=== PATIENT | male | born 1955 | race Caucasian/White ===

== ENCOUNTER 2018-04-26 18:17 | Outpatient (REF) | payer OTHER, SELFPAY ==
[2018-04-26 22:34] LABS: BUN 27 mg/dL (7-18); CREATININE 1.58 mg/dL (0.70-1.30); Calcium 9.2 mg/dL (8.5-10.1); Chloride 102 mmol/L (98-107); Estimated GFR 44.81 (mL/min/1.73m2); Glucose 221 mg/dL (70-100); Potassium 4.6 mmol/L (3.5-5.1); Sodium 137 mmol/L (136-145)
== END 2018-04-26 18:37 ==
LOC: NCHCN 18:17
PROVIDERS: PCP Family Medicine; Visit Provider Family Medicine
DX: N18.3 Chronic kidney disease, stage 3 (moderate) (principal); I25.10 Atherosclerotic heart disease of native coronary artery without angina pectoris
CPT/HCPCS: 80048

== ENCOUNTER 2018-08-01 10:00 | Outpatient (REF) | payer OTHER, SELFPAY ==
[2018-08-01 21:57] LABS: Anion Gap 14.5 mmol/L (3-11); BUN 35 mg/dL (7-18); CO2 21.5 mmol/L (21.0-32.0); CREATININE 1.67 mg/dL (0.70-1.30); Calcium 9.4 mg/dL (8.5-10.1); Chloride 104 mmol/L (98-107); Glucose 229 mg/dL (70-100); Potassium 4.8 mmol/L (3.5-5.1); Sodium 140 mmol/L (136-145)
== END 2018-08-01 10:20 ==
LOC: NCHCN 10:00
PROVIDERS: PCP Family Medicine; Visit Provider Family Medicine
DX: E11.65 Type 2 diabetes mellitus with hyperglycemia (principal); N18.3 Chronic kidney disease, stage 3 (moderate); I25.10 Atherosclerotic heart disease of native coronary artery without angina pectoris
CPT/HCPCS: 80048

== ENCOUNTER 2018-09-01 12:57 | Outpatient (REF) | payer OTHER, SELFPAY ==
[2018-09-01 22:53] LABS: COMMENT (LAB VIEW ONLY) 101.77 mg/dL; Microalb ug/mg Crea 190.6 ug/mg Cr
== END 2018-09-01 13:17 ==
LOC: NCHCN 12:57
PROVIDERS: PCP Family Medicine; Visit Provider Family Medicine
DX: I25.10 Atherosclerotic heart disease of native coronary artery without angina pectoris (principal); E11.65 Type 2 diabetes mellitus with hyperglycemia; F32.9 Major depressive disorder, single episode, unspecified
CPT/HCPCS: 82043; 82570

== ENCOUNTER 2020-02-14 16:43 | Outpatient (REF) | payer SELFPAY | END 2020-02-14 17:03 | LOC: NCHCN 16:43 | PROVIDERS: PCP Family Medicine; Visit Provider Registered Nurse | DX: E11.65 Type 2 diabetes mellitus with hyperglycemia (principal) | CPT/HCPCS: 82043; 82570 ==

== ENCOUNTER 2020-08-13 17:47 | Outpatient (REF) | payer OTHER, SELFPAY ==
[2020-08-13 13:34] LABS: Anion Gap 12.3 mmol/L (3-11); BUN 25 mg/dL (7-18); CO2 23.7 mmol/L (21.0-32.0); CREATININE 1.6 mg/dL (0.70-1.30); Calcium 8.7 mg/dL (8.5-10.1); Chloride 108 mmol/L (98-107); Estimated GFR 43.74 (mL/min/1.73m2); Glucose 102 mg/dL (74-106); Potassium 4.7 mmol/L (3.5-5.1); Sodium 144 mmol/L (136-145)
== END 2020-08-13 17:48 | disposition home or self-care (01) ==
LOC: NCHCN 17:47
PROVIDERS: PCP Family Medicine; Visit Provider Registered Nurse
DX: E11.22 Type 2 diabetes mellitus with diabetic chronic kidney disease (principal); N18.9 Chronic kidney disease, unspecified
CPT/HCPCS: 80048

== ENCOUNTER 2020-08-27 09:31 | Outpatient (REF) | payer OTHER, SELFPAY ==
[2020-08-27 14:27] LABS: Anion Gap 9.5 mmol/L (3-11); BUN 21 mg/dL (7-18); CO2 25.5 mmol/L (21.0-32.0); CREATININE 1.6 mg/dL (0.70-1.30); Calcium 9.5 mg/dL (8.5-10.1); Chloride 107 mmol/L (98-107); Estimated GFR 43.74 (mL/min/1.73m2); Glucose 110 mg/dL (74-106); Potassium 4.5 mmol/L (3.5-5.1); Sodium 142 mmol/L (136-145)
== END 2020-08-27 09:32 | disposition home or self-care (01) ==
LOC: NCHCN 09:31
PROVIDERS: PCP Family Medicine; Visit Provider Registered Nurse
DX: E11.22 Type 2 diabetes mellitus with diabetic chronic kidney disease (principal); N18.32 Chronic kidney disease, stage 3b
CPT/HCPCS: 80048

== ENCOUNTER 2021-02-10 13:17 | Outpatient (REF) | payer OTHER, SELFPAY ==
[2021-02-10 15:03] LABS: ALT 33 U/L (16-63); AST 15 U/L (15-37); Albumin 3.7 g/dL (3.4-5.0); Alkaline Phosphatase 61 U/L (46-116); Anion Gap 10.1 mmol/L (3-11); BUN 32 mg/dL (7-18); Bilirubin, Total 0.6 mg/dL (0.2-1.0); CO2 27.9 mmol/L (21.0-32.0); CREATININE 1.6 mg/dL (0.70-1.30); Calcium 9.4 mg/dL (8.5-10.1); Chloride 104 mmol/L (98-107); Cholesterol 246 mg/dL (<200); Estimated GFR 43.74 (mL/min/1.73m2); Glucose 174 mg/dL (74-106); HDL Cholesterol 53 mg/dL (40-60); Potassium 4.7 mmol/L (3.5-5.1); Sodium 142 mmol/L (136-145); Total Protein 7.6 g/dL (6.4-8.2); Triglyceride 468 mg/dL (<150)
[2021-02-10 15:29] LABS: LDL CHOLESTEROL 57 mg/dL (<100)
[2021-02-10 15:36] LABS: Hemoglobin A1C 7.8 % (<5.7)
== END 2021-02-10 13:18 | disposition home or self-care (01) ==
LOC: NCHCN 13:17
PROVIDERS: Nurse Practitioner Family; PCP Family Medicine; Visit Provider Family Medicine
DX: E11.65 Type 2 diabetes mellitus with hyperglycemia (principal); I10 Essential (primary) hypertension; Z79.4 Long term (current) use of insulin; I25.10 Atherosclerotic heart disease of native coronary artery without angina pectoris
CPT/HCPCS: 80053; 80061; 83721; 83036

== ENCOUNTER 2021-04-24 16:25 | Outpatient (REF) | payer OTHER, SELFPAY ==
[2021-04-24 14:30] LABS: Calculated LDL 61 mg/dL (<100); Cholesterol 188 mg/dL (<200); HDL Cholesterol 52 mg/dL (40-60); Triglyceride 376 mg/dL (<150)
== END 2021-04-24 16:26 | disposition home or self-care (01) ==
LOC: NCHCN 16:25
PROVIDERS: PCP Family Medicine; Visit Provider Family Medicine
DX: E78.5 Hyperlipidemia, unspecified (principal); E11.8 Type 2 diabetes mellitus with unspecified complications; I35.0 Nonrheumatic aortic (valve) stenosis; I25.10 Atherosclerotic heart disease of native coronary artery without angina pectoris
CPT/HCPCS: 80061

== ENCOUNTER 2021-08-14 12:24 | Outpatient (REF) | payer OTHER, SELFPAY ==
[2021-08-14 16:30] LABS: COMMENT (LAB VIEW ONLY) 77.36 mg/dL
[2021-08-14 16:32] LABS: Microalb ug/mg Crea 386.4 ug/mg Cr
== END 2021-08-14 12:25 | disposition home or self-care (01) ==
LOC: NCHCN 12:24
PROVIDERS: PCP Family Medicine; Visit Provider Family Medicine
DX: E11.8 Type 2 diabetes mellitus with unspecified complications (principal)
CPT/HCPCS: 82043; 82570

== ENCOUNTER 2022-04-28 21:04 | Outpatient (REF) | payer MEDICARE, SELFPAY ==
[2022-04-28 20:56] LABS: Anion Gap 10.3 mmol/L (3-11); BUN 36 mg/dL (7-18); CO2 23.7 mmol/L (21.0-32.0); Calcium 8.9 mg/dL (8.5-10.1); Chloride 104 mmol/L (98-107); Cholesterol 191 mg/dL (<200); Estimated GFR 36.36 (mL/min/1.73m2); Glucose 224 mg/dL (74-106); HDL Cholesterol 55 mg/dL (40-60); Potassium 4.8 mmol/L (3.5-5.1); Sodium 138 mmol/L (136-145); Triglyceride 487 mg/dL (<150)
--- OUTSIDE RECORDS SUMMARY | 2022-04-28 21:12 | XMS_ITS | CCD ---
Author Name Unknown Address [address] [place] [address] [id number] Organization Unknown Address [address] [place] [address] [phone] Care Team Providers Care Nursing Program Coordinator Name Role Phone CECILE ROBBINS Attending Physician [phone] ALEXSANDER MEDRANO Er Physician 2 [phone] ALEXSANDER MEDRANO (Secondary) Physicia n [phone] LIBRADO Finnegan Registered Nurse [phone] Vital Signs Vital Sign Value Unit Date/Time Recent/Initial ? BMI (Body Mass Index) 32.98 kg/m^2 12/16/2021 21: 03 Initial VS Weight Measured 250 lbs 12/16/2021 21:03 Ini tial VS Height 73 in 12/16/2021 21:03 Initial VS BSA (Body Surface Area) 2.42 m^2 12/16/2021 2 1:03 Initial VS BP Systolic 187 mmHg 12/16/2021 21:03 Initial VS BP Diastolic 110 mmHg 12/16/2021 21:03 Initia l VS Respiratory Rate 20 bpm 12/16/2021 21:03 In itial VS Heart Rate 91 bpm 12/16/2021 21:03 Initial VS O2 % BldC Oximetry 96 % 12/16/2021 21:03 Initial VS Body Temperature 36.7 degrees 12/16/2021 21:03 In itial VS BMI (Body Mass Index) 33.69 kg/m^2 12/16/2021 23: 48 Most Recent VS Weight Measured 248.4 lbs 12/16/2021 23:48 Mos t Recent VS Height 72 in 12/16/2021 23:48 Most Rec ent VS BSA (Body Surface Area) 2.39 m^2 12/16/2021 2 3:48 Most Recent VS BP Systolic 108 mmHg 12/18/2021 07:23 Most Re cent VS BP Diastolic 72 mmHg 12/18/2021 07:23 Most R ecent VS Respiratory Rate 20 bpm 12/18/2021 07:[address] Recent VS Heart Rate 66 bpm 12/18/2021 07:23 Most Rec ent VS O2 % BldC Oximetry 97 % 12/18/2021 07:23 Most Recent VS Body Temperature 36.4 degrees 12/18/2021 07:[address] Recent VS Allergies Allergy Code Allergy Type Reaction Status No Known Environmental Allergies 0 No known envir onmental allergies Active No Known Food Allergies 0 No known food allergies Active No Known Drug Allergies 0 No known drug allergies Active Procedures Unknown or Not Available. History of Immunizations Unknown or Not Available. Problems Problem Code Start Date Resolved Date Status NSTEMI 691029152 Active Coronary artery disease 20595539 A ctive Type 2 diabetes 51004906 Active Chronic kidney disease 509694951 Ac tive Aortic valve stenosis (disorder) 03808345 Active Hypertension 87442598 Active Hyperlipidemia 01388552 Active Aortic valve stenosis (disorder) 43676755 03/2021 Resolved Single functional kidney 191716059 12/16/2021 Resolved Chronic kidney disease 224254666 12/16/2021 Re solved Hyperlipidemia 81367318 12/16/2021 Resolved Hypertension 55685296 12/16/2021 Resolved Type 2 diabetes 38386699 12/16/2021 Resolved Coronary artery disease 35406287 12/16/2021 R esolved Results BASIC METABOLIC PANEL (BMP) - Collect Date/Time: 12/18/2021 06:35 Test Name Code Test Result Test Units Test Ref Rang e GLUCOSE 2345-7 91 mg/dL L=70 H=116 BUN 3094-0 33 mg/dL L=6 H=25 CREATININE 2160-0 1.56 mg/dL L=0.67 H=1.17 SODIUM SERUM 2951-2 137 mmol/L L=136 H=145 POTASSIUM SERUM 2823-3 4.0 mmol/L L=3.4 H=5 .2 CHLORIDE SERUM 2075-0 103 mmol/L L=96 H=110 CARBON DIOXIDE (CO2) 2028-9 26 mmol/L L=22 H=34 ANION GAP 48354-4 8.1 mmol/L CALCIUM SERUM 25714-9 8.6 mg/dL L=8.2 H=10. 2 AGE 66 years eGFR (non-Afr.Amer.) 99252-0 45 mL/min eGFR (Afr-Pakistani) 86880-6 54 mL/min BASIC METABOLIC PANEL (BMP) - Collect Date/Time: 12/17/2021 04:50 Test Name Code Test Result Test Units Test Ref Rang e GLUCOSE 2345-7 139 mg/dL L=70 H=116 BUN 3094-0 36 mg/dL L=6 H=25 CREATININE 2160-0 1.72 mg/dL L=0.67 H=1.17 SODIUM SERUM 2951-2 139 mmol/L L=136 H=145 POTASSIUM SERUM 2823-3 3.9 mmol/L L=3.4 H=5 .2 CHLORIDE SERUM 2075-0 104 mmol/L L=96 H=110 CARBON DIOXIDE (CO2) 2028-9 25 mmol/L L=22 H=34 ANION GAP 42630-9 10.3 mmol/L CALCIUM SERUM 65152-0 8.9 mg/dL L=8.2 H=10. 2 AGE 66 years eGFR (non-Afr.Amer.) 31850-8 40 mL/min eGFR (Afr-Pakistani) 95931-4 49 mL/min BNP (PRO-B NATRIURETIC PEPTI DE) - Collect Date/Time: 12/16/2021 20:50 Test Name Code Test Result Test Units Test Ref Rang e NT-proBNP 77187-4 751.0 pg/mL L=0.0 H=125 COMPREHENSIVE METABOLIC PANE L (CMP) - Collect Date/Time: 12/16/2021 20:50 Test Name Code Test Result Test Units Test Ref Rang e GLUCOSE 2345-7 266 mg/dL L=70 H=116 BUN 3094-0 40 mg/dL L=6 H=25 CREATININE 2160-0 2.09 mg/dL L=0.67 H=1.17 SODIUM SERUM 2951-2 135 mmol/L L=136 H=145 POTASSIUM SERUM 2823-3 4.8 mmol/L L=3.4 H=5 .2 CHLORIDE SERUM 2075-0 100 mmol/L L=96 H=110 CARBON DIOXIDE (CO2) 2028-9 23 mmol/L L=22 H=34 ANION GAP 45047-4 11.6 mmol/L CALCIUM SERUM 96033-0 8.7 mg/dL L=8.2 H=10. 2 BILIRUBIN TOTAL 1975-2 0.5 mg/dL L=0.0 H=1 .3 ALK. PHOS. 6768-6 50 U/L L=46 H=116 SGOT (AST) 1920-8 19 U/L L=15 H=37 SGPT (ALT) 1742-6 27 U/L L=12 H=78 TOTAL PROTEIN 2885-2 7.6 gm/dL L=6.0 H=8.0 ALBUMIN 1751-7 3.7 gm/dL L=3.4 H=5.0 AGE 66 years eGFR (non-Afr.Amer.) 60952-2 32 mL/min eGFR (Afr-Pakistani) 69874-8 39 mL/min GLUCOSE FINGER/HEEL CAPILLAR Y - Collect Date/Time: 12/18/2021 12:43 Test Name Code Test Result Test Units Test Ref Rang e GLUCOSE CAP 119 mg/dL L=70 H=116 GLUCOSE FINGER/HEEL CAPILLAR Y - Collect Date/Time: 12/18/2021 07:59 Test Name Code Test Result Test Units Test Ref Rang e GLUCOSE CAP 102 mg/dL L=70 H=116 GLUCOSE FINGER/HEEL CAPILLAR Y - Collect Date/Time: 12/17/2021 20:23 Test Name Code Test Result Test Units Test Ref Rang e GLUCOSE CAP 137 mg/dL L=70 H=116 GLUCOSE FINGER/HEEL CAPILLAR Y - Collect Date/Time: 12/17/2021 17:07 Test Name Code Test Result Test Units Test Ref Rang e GLUCOSE CAP 90 mg/dL L=70 H=116 GLUCOSE FINGER/HEEL CAPILLAR Y - Collect Date/Time: 12/17/2021 11:58 Test Name Code Test Result Test Units Test Ref Rang e GLUCOSE CAP 108 mg/dL L=70 H=116 GLUCOSE FINGER/HEEL CAPILLAR Y - Collect Date/Time: 12/17/2021 07:59 Test Name Code Test Result Test Units Test Ref Rang e GLUCOSE CAP 111 mg/dL L=70 H=116 MAGNESIUM SERUM* - Collect D ate/Time: 12/16/2021 20:50 Test Name Code Test Result Test Units Test Ref Rang e MAGNESIUM 33131-7 2.2 mg/dL L=1.8 H=2.4 TROPONIN HIGH SENSITIVITY* - Collect Date/Time: 12/18/2021 06:35 Test Name Code Test Result Test Units Test Ref Rang e TROPONIN HS 665.5 pg/mL L=0.0 H=60.4 Specimen seq. RANDOM N/A TROPONIN HIGH SENSITIVITY* - Collect Date/Time: 12/17/2021 11:55 Test Name Code Test Result Test Units Test Ref Rang e TROPONIN HS 1201.0 pg/mL L=0.0 H=60.4 Specimen seq. RANDOM N/A TROPONIN HIGH SENSITIVITY* - Collect Date/Time: 12/17/2021 04:50 Test Name Code Test Result Test Units Test Ref Rang e TROPONIN HS 1427.0 pg/mL L=0.0 H=60.4 Specimen seq. RANDOM N/A TROPONIN HIGH SENSITIVITY* - Collect Date/Time: 12/17/2021 00:27 Test Name Code Test Result Test Units Test Ref Rang e TROPONIN HS 1283.9 pg/mL L=0.0 H=60.4 Specimen seq. RANDOM N/A TROPONIN HIGH SENSITIVITY* - Collect Date/Time: 12/16/2021 20:50 Test Name Code Test Result Test Units Test Ref Rang e TROPONIN HS 1062.2 pg/mL L=0.0 H=60.4 Specimen seq. ADM. N/A CBC W/ DIFFERENTIAL* - Colle ct Date/Time: 12/18/2021 06:35 Test Name Code Test Result Test Units Test Ref Rang e WBC 6690-2 8.78 th/cmm L=5.00 H=10.00 NEUT % 56.5 % L=40.0 H=80.0 LYMPH % 31.0 % L=10.0 H=50.0 MONO % 22568-2 10.4 % L=2.0 H=12.0 EOS % 1.7 % L=0.0 H=8.0 BASO % 0.3 % L=0.0 H=3.0 IG % 2514-8 0.1 % L=0.0 H=1.1 NRBC % 53657-9 0.0 % L=0.0 H=0.0 NEUT abs count 751-8 5.0 th/cmm L=1.6 H=8. 4 LYMPH abs count 731-0 2.7 th/cmm L=1.5 H=4 .0 MONO abs count 742-7 0.9 th/cmm L=0.2 H=1. 0 EOS abs count 711-2 0.2 th/cmm L=0.0 H=0.5 BASO abs count 704-7 0.0 th/cmm L=0.0 H=0. 2 IG abs count 92749-7 0.0 th/cmm L=0.0 H=0.1 NRBC abs count 48199-4 0.0 mil/cmm L=0.0 H=0. 0 RBC 789-8 4.98 mil/cmm L=4.30 H=6.20 HEMOGLOBIN 718-7 13.7 gm/dL L=13.0 H=17.0 HEMATOCRIT 4544-3 43 % L=45 H=52 MCV 787-2 86 fL L=82 H=92 MCH 785-6 27.5 pg L=27.0 H=31.0 MCHC 786-4 32.0 % L=32.0 H=36.0 RDW-SD 788-0 42.0 fL L=39.0 H=49.0 PLATELET COUNT 777-3 205 th/cmm L=150 H=45 0 CBC W/ DIFFERENTIAL* - Colle ct Date/Time: 12/17/2021 04:50 Test Name Code Test Result Test Units Test Ref Rang e WBC 6690-2 9.60 th/cmm L=5.00 H=10.00 NEUT % 53.5 % L=40.0 H=80.0 LYMPH % 32.6 % L=10.0 H=50.0 MONO % 95258-2 11.7 % L=2.0 H=12.0 EOS % 1.4 % L=0.0 H=8.0 BASO % 0.4 % L=0.0 H=3.0 IG % 2514-8 0.4 % L=0.0 H=1.1 NRBC % 64559-6 0.0 % L=0.0 H=0.0 NEUT abs count 751-8 5.1 th/cmm L=1.6 H=8. 4 LYMPH abs count 731-0 3.1 th/cmm L=1.5 H=4 .0 MONO abs count 742-7 1.1 th/cmm L=0.2 H=1. 0 EOS abs count 711-2 0.1 th/cmm L=0.0 H=0.5 BASO abs count 704-7 0.0 th/cmm L=0.0 H=0. 2 IG abs count 67895-3 0.0 th/cmm L=0.0 H=0.1 NRBC abs count 23691-9 0.0 mil/cmm L=0.0 H=0. 0 RBC 789-8 4.91 mil/cmm L=4.30 H=6.20 HEMOGLOBIN 718-7 13.8 gm/dL L=13.0 H=17.0 HEMATOCRIT 4544-3 42 % L=45 H=52 MCV 787-2 86 fL L=82 H=92 MCH 785-6 28.1 pg L=27.0 H=31.0 MCHC 786-4 32.8 % L=32.0 H=36.0 RDW-SD 788-0 41.3 fL L=39.0 H=49.0 PLATELET COUNT 777-3 183 th/cmm L=150 H=45 0 CBC W/ DIFFERENTIAL* - [facility] ct Date/Time: 12/16/2021 20:50 Test Name Code Test Result Test Units Test Ref Rang e WBC 6690-2 13.81 th/cmm L=5.00 H=10.00 NEUT % 75.9 % L=40.0 H=80.0 LYMPH % 15.2 % L=10.0 H=50.0 MONO % 85826-8 7.9 % L=2.0 H=12.0 EOS % 0.4 % L=0.0 H=8.0 BASO % 0.3 % L=0.0 H=3.0 IG % 2514-8 0.3 % L=0.0 H=1.1 NRBC % 15636-1 0.0 % L=0.0 H=0.0 NEUT abs count 751-8 10.5 th/cmm L=1.6 H=8. 4 LYMPH abs count 731-0 2.1 th/cmm L=1.5 H=4 .0 MONO abs count 742-7 1.1 th/cmm L=0.2 H=1. 0 EOS abs count 711-2 0.1 th/cmm L=0.0 H=0.5 BASO abs count 704-7 0.0 th/cmm L=0.0 H=0. 2 IG abs count 00545-4 0.0 th/cmm L=0.0 H=0.1 NRBC abs count 77516-5 0.0 mil/cmm L=0.0 H=0. 0 RBC 789-8 5.11 mil/cmm L=4.30 H=6.20 HEMOGLOBIN 718-7 14.4 gm/dL L=13.0 H=17.0 HEMATOCRIT 4544-3 44 % L=45 H=52 MCV 787-2 86 fL L=82 H=92 MCH 785-6 28.2 pg L=27.0 H=31.0 MCHC 786-4 32.7 % L=32.0 H=36.0 RDW-SD 788-0 41.4 fL L=39.0 H=49.0 PLATELET COUNT 777-3 215 th/cmm L=150 H=45 0 PT PROTHROMBIN TIME* - Colle ct Date/Time: 12/16/2021 20:50 Test Name Code Test Result Test Units Test Ref Rang e PROTIME 5902-2 10.8 seconds L=9.3 H=11.4 INR 89702-2 1.09 L=2.00 H=3.00 PTT PARTIAL THROMBOPLASTIN T JASKARAN* - Collect Date/Time: 12/17/2021 17:35 Test Name Code Test Result Test Units Test Ref Rang e PTT 09685-1 42.5 seconds L=24.5 H=32.8 PTT PARTIAL THROMBOPLASTIN T JASKARAN* - Collect Date/Time: 12/17/2021 11:55 Test Name Code Test Result Test Units Test Ref Rang e PTT 15925-2 43.2 seconds L=24.5 H=32.8 PTT PARTIAL THROMBOPLASTIN T JASKARAN* - Collect Date/Time: 12/17/2021 04:50 Test Name Code Test Result Test Units Test Ref Rang e PTT 92051-7 36.0 seconds L=24.5 H=32.8 PTT PARTIAL THROMBOPLASTIN T JASKARAN* - Collect Date/Time: 12/16/2021 20:50 Test Name Code Test Result Test Units Test Ref Rang ronald PTT 01286-4 23.7 seconds L=24.5 H=32.8 NESTOR DUONG* - Sara ect Date/Time: 12/16/2021 23:04 Test Name Code Test Result Test Units Test Ref Rang ronald [facility]- 58655-0 INPATIENT/ED N/A SARS COV2 RNA: 75559-0 NEGATIVE N/A REFERENCE RANGE: NEGAT Active Medications Medication Code Dose Units Frequency Route Modificatio n Start Date/Time INSULIN PEN GLARGINE: 300UNITS/3ML 090702 60 Unit(s) DAILY SUBQ 17:32 NITROGLYCERIN OINTMENT FOILPACK 2%:1GRAM 549576 1 INCH Q6H TOP 12/17/2021 16:00 METOPROLOL TARTRATE TABLET: 25MG 336601 25 MG BID PO 12/17/2021 09:32 ASPIRIN TABLET E.C.: 81MG 776750 81 MG DAILY WITH FOOD PO 12/17/2021 00:22 TICAGRELOR TABLET: 90MG 9267603 90 MG BID PO 12/17/2021 00:22 ATORVASTATIN TABLET: 20MG 552763 20 MG BEDTIME PO 23:29 EMPAGLIFLOZIN TABLET: 25MG 4965414 25 MG BEDTIME PO 23:29 FLUoxetine CAPSULE: 20MG 198615 40 MG BEDTIME PO 2021 23:29 GABAPENTIN CAPSULE: 300MG 334139 300 MG BEDTIME PO 12/16 23:29 INSULIN PEN LISPRO: 300UNITS/3ML 0715254 Unit(s) PRN SUBQ 23:29 LISINOPRIL TABLET: 5MG 036357 2.5 MG BEDTIME PO 12/16/2021 23:29 HEPARIN PREMIX IV BA,000UNITS/250ML 1371199 X1 IV 22:35 ~~ HEPARIN PREMIX IV BA,000UNITS/250ML 8446208 21952 UNITS HEPARIN PREMIX IV BA,000UNITS/250ML 5955958 CONT IV 22:35 ~~ HEPARIN PREMIX IV BA,000UNITS/250ML 0082066 99831 UNITS ACETAMINOPHEN INJ IVPB: 1000MG/100ML 412931 PRN Q6H IVPB 1 02/15/2021 22:33 ~~ ACETAMINOPHEN INJ IVPB: 1000MG/100ML 535799 9948 MG ACETAMINOPHEN TABLET: 325MG 290134 975 MG PRN Q6H PO 2021 22:33 CALCIUM CARBONATE TAB CHEWABLE UD: 500MG 259061 8696 MG PRN Q2H CHEW 12/16/2021 22:33 ONDANSETRON INJ SDV: 4MG/2ML 9669359 4 MG PRN Q4H IVP 022 22:33 SODIUM CHLORIDE 0.9% FLUSH 10ML SYRINGE 9059987 2 ML Q8H IVP 12/16/2021 22:33 HEPARIN INJ SDV: 5,000 UNITS/ML 2300965 4604 UNITS PRN Q6H IVP 12/16 22:00 NITROGLYCERIN TABLET SL (25CT): 0.4MG 515281 0.4 MG PRN Q5MIN SL 12/16/2021 21:01 Medications Administered During Visit Medication Dose Units Frequency Route Date/Time of Last Dose ASPIRIN TABLET CHEWABLE: 81MG 324 MG X1 CHEW 12/16/2021 21:0 2 NITROGLYCERIN TABLET SL (25CT): 0.4MG 0.4 MG PRN Q5MIN SL 12/16/2021 21: 40 HEPARIN INJ SDV: 5,000 UNITS/ML 5000 UNITS X1 IVP 12/16/2021 22:2 0 HEPARIN PREMIX IV BA,000UNITS/250ML 1000 UNITS X1 IV 12/16/2021 22:25 TICAGRELOR TABLET: 90MG 180 MG X1 PO 12/16/2021 22:45 SODIUM CHLORIDE 0.9% FLUSH 10ML SYRINGE 2 ML Q8H IVP 12/17/2021 05:3 9 ACETAMINOPHEN TABLET: 325MG 975 MG PRN Q6H PO 12/17/2021 22:48 ONDANSETRON INJ SDV: 4MG/2ML 4 MG PRN Q4H IVP 12/17/2021 03:0 0 NITROGLYCERIN OINTMENT FOILPACK 2%:1GRAM 1 INCH Q6H TOP 12/17/2021 09:42 EMPAGLIFLOZIN TABLET: 25MG 25 MG BEDTIME PO 12/17/2021 20:32 ATORVASTATIN TABLET: 20MG 20 MG BEDTIME PO 12/17/2021 20:32 FLUoxetine CAPSULE: 20MG 40 MG BEDTIME PO 12/17/2021 20:32 LISINOPRIL TABLET: 5MG 2.5 MG BEDTIME PO 12/17/2021 17:28 GABAPENTIN CAPSULE: 300MG 300 MG BEDTIME PO 12/17/2021 20:32 INSULIN PEN LISPRO: 300UNITS/3ML PRN SUBQ 12/18/2021 12:5 7 ASPIRIN TABLET E.C.: 81MG 81 MG DAILY WITH SHAAN D PO 12/18/2021 08:21 HEPARIN PREMIX IV BA,000UNITS/250ML 1400 UNITS CONT IV 12/18/2021 12:48 TICAGRELOR TABLET: 90MG 90 MG BID PO 12/18/2021 08:21 METOPROLOL TARTRATE TABLET: 25MG 25 MG BID PO 12/18/2021 08:2 1 NITROGLYCERIN OINTMENT FOILPACK 2%:1GRAM 1 INCH Q6H TOP 12/18/2021 11:10 INSULIN MDV GLARGINE: 1000 UNITS/10ML 60 Unit(s) DAILY SUBQ 12/17/2021 12:2 0 INSULIN PEN GLARGINE: 300UNITS/3ML 60 Unit(s) DAILY SUBQ 12/18/2021 08:2 2 Encounters Encounter Diagnosis Diagnosis Code Start Date Non-ST elevation (NSTEMI) myocardial infarction I214 12/16/2021 Social History Smoking Status Code Start Date End Date Never smoker [id number] Patient Decision Aids Unknown or Not Available. Discharge Instructions You were admitted to [facility] on 12/16/2021 22:33 with a principal diagnosis of Acute Myocardial Infarction You had the following tests done:GLUCOSE FINGER/HEEL CAPILLARYGLUCOSE FINGER/HEEL CAPILLARYBASIC METABOLIC PANEL (BMP)CBC W/ DIFFERENTIAL*TROPONIN HIGH SENSITIVITY*GLUCOSE FINGER/HEEL CAPILLARYPTT PARTIAL THROMBOPLASTIN TIME*GLUCOSE FINGER/HEEL CAPILLARYGLUCOSE FINGER/HEEL CAPILLARYPTT PARTIAL THROMBOPLASTIN TIME*TROPONIN HIGH SENSITIVITY*GLUCOSE FINGER/HEEL CAPILLARYBASIC METABOLIC PANEL (BMP)CBC W/ DIFFERENTIAL*PTT PARTIAL THROMBOPLASTIN TIME*TROPONIN HIGH SENSITIVITY*[facility] MESERETID RHEONIX*BNP (PRO-B NATRIURETIC PEPTIDE)CBC W/ DIFFERENTIAL*COMPREHENSIVE METABOLIC PANEL (CMP)MAGNESIUM SERUM*PT PROTHROMBIN TIME*PTT PARTIAL THROMBOPLASTIN TIME*TROPONIN HIGH SENSITIVITY* You were discharged from [facility] on 12/18/2021 13:40 Should you have any questions prior to discharge, please contact a member of your healthcare team. If you have left the hospital and have any questions, please contact your primary care physician. Chief Complaint and Reason For Visit Chief Complaint Date of Onset NSTEMI 12/17/2021 Function Status Unknown or Not Available. Plan of Care Unknown or Not Available. Referral/Transition of Care Reason for Transfer: TRANSFER FROM [facility] Referring Provider: [facility] Address: [address] [place] [id number]
--- OUTSIDE RECORDS SUMMARY | 2022-04-28 21:12 | XMS_ITS | CCD ---
Author Name Unknown Address [address] [place] [address] [phone] Organization Unknown Address [address] [place], [place] [id number] Care Team Providers Care Sample Prep Technician Name Role Phone SEA TREVIÑO Attending Physician [phone] SEA TREVIÑO Rounding (Secondary) Physician [phone] Vital Signs Unknown or Not Available. Allergies Allergy Code Allergy Type Reaction Status No Known Environmental Allergies 0 No known envir onmental allergies Active No Known Food Allergies 0 No known food allergies Active No Known Drug Allergies 0 No known drug allergies Active Procedures Unknown or Not Available. History of Immunizations Unknown or Not Available. Problems Problem Code Start Date Resolved Date Status NSTEMI 243470134 Active Coronary artery disease 08548418 A ctive Type 2 diabetes 77998791 Active Chronic kidney disease 211964482 Ac tive Aortic valve stenosis (disorder) 63224713 Active Hypertension 34592671 Active Hyperlipidemia 99712618 Active Results Unknown or Not Available. Active Medications Unknown or Not Available. Medications Administered During Visit Unknown or Not Available. Encounters Encounter Diagnosis Diagnosis Code Start Date Essential hypertension 52808418 3 Social History Smoking Status Code Start Date End Date Never smoker 725538748 Patient Decision Aids Unknown or Not Available. Discharge Instructions You were admitted to [facility] on 03/01/2022 15:31 with a principal diagnosis of Essential (primary) hypertension You were discharged from [facility] on 03/01/2022 00:00 Should you have any questions prior to discharge, please contact a member of your healthcare team. If you have left the hospital and have any questions, please contact your primary care physician. Chief Complaint and Reason For Visit Unknown or Not Available. Function Status Unknown or Not Available. Plan of Care Unknown or Not Available. Referral/Transition of Care Unknown or Not Available.
--- OUTSIDE RECORDS SUMMARY | 2022-04-28 21:12 | XMS_ITS | CCD ---
Author Name Unknown Address [address] [place] [address] [phone] Organization Unknown Address [address] [place] [address] [phone] Care Team Providers Care Commercial Airline Pilot Name Role Phone VARSHA KHRIS Attending Physician [phone] Vital Signs Unknown or Not Available. Allergies [...] Code Start Date Resolved Date Status NSTEMI 131362585 Active Coronary artery disease 27048045 A ctive Type 2 diabetes 18465794 Active Chronic kidney disease 997538998 Ac tive Aortic valve stenosis (disorder) 02563080 Active Hypertension 21189689 Active Hyperlipidemia 72742540 Active Results Unknown or Not Available. Active Medications Unknown or Not Available. Medications Administered During Visit Unknown or Not Available. Encounters Encounter Diagnosis Diagnosis Code Start Date Non-ST elevation (NSTEMI) myocardial infarction I214 03/05/2022 Social History Smoking Status Code Start Date End Date Never smoker 045985006 Patient Decision Aids Unknown or Not Available. Discharge Instructions You were admitted to [facility] on 03/05/2022 16:11 with a principal diagnosis of Non-ST elevation (NSTEMI) myocardial infarction You were discharged from [facility] Should you have any questions prior to [...]
[2022-04-28 21:21] LABS: LDL CHOLESTEROL 55 mg/dL (<100)
[2022-04-29 17:52] LABS: PSA, Screening 0.8 ng/mL (<=4.5)
== END 2022-04-28 21:05 | disposition home or self-care (01) ==
LOC: NCHCN 21:04
PROVIDERS: PCP Family Medicine; Visit Provider Family Medicine
DX: E78.5 Hyperlipidemia, unspecified (principal); Z12.5 Encounter for screening for malignant neoplasm of prostate; I10 Essential (primary) hypertension
CPT/HCPCS: 80048; 80061; 83721; 84153

== ENCOUNTER 2022-11-08 13:07 | Outpatient (REF) | payer MEDICARE, SELFPAY ==
[2022-11-08 16:03] LABS: ALT 31 U/L (16-63); AST 34 U/L (15-37); Albumin 3.6 g/dL (3.4-5.0); Alkaline Phosphatase 52 U/L (46-116); Bilirubin, Direct 0.2 mg/dL (0.0-0.2); Bilirubin, Total 0.7 mg/dL (0.2-1.0); Calculated LDL 76 mg/dL (<100); Cholesterol 178 mg/dL (<200); HDL Cholesterol 56 mg/dL (40-60); Total Protein 7.7 g/dL (6.4-8.2); Triglyceride 231 mg/dL (<150)
[2022-11-11 15:42] LABS: Lipoprotein (a) 53 nmol/L (<75)
== END 2022-11-08 13:08 | disposition home or self-care (01) ==
LOC: LBN 13:07
PROVIDERS: PCP Family Medicine; Visit Provider Internal Medicine Interventional Cardiology
DX: E78.5 Hyperlipidemia, unspecified (principal)
CPT/HCPCS: 80061; 80076; 83695

== ENCOUNTER 2023-02-21 15:41 | Outpatient (REF) | payer MEDICARE, SELFPAY ==
[2023-02-21 14:20] LABS: Anion Gap 8.6 mmol/L (3-11); BUN 42 mg/dL (7-18); CO2 23.4 mmol/L (21.0-32.0); Calcium 9.7 mg/dL (8.5-10.1); Chloride 106 mmol/L (98-107); Estimated GFR 36.13 (mL/min/1.73m2); Glucose 187 mg/dL (74-106); Potassium 4.8 mmol/L (3.5-5.1); Sodium 138 mmol/L (136-145)
== END 2023-02-21 15:42 | disposition home or self-care (01) ==
LOC: NCHCN 15:41
PROVIDERS: PCP Family Medicine; Visit Provider Family Medicine
DX: I10 Essential (primary) hypertension (principal)
CPT/HCPCS: 80048

== ENCOUNTER 2023-07-28 16:23 | Outpatient (REF) | payer MEDICARE, SELFPAY ==
[2023-07-28 20:58] LABS: Anion Gap 10.8 mmol/L (3-11); BUN 42 mg/dL (7-18); CO2 23.2 mmol/L (21.0-32.0); CREATININE 2.5 mg/dL (0.70-1.30); Calcium 8.9 mg/dL (8.5-10.1); Chloride 101 mmol/L (98-107); Estimated GFR 27.47 (mL/min/1.73m2); Glucose 498 mg/dL (74-106); Potassium 4.6 mmol/L (3.5-5.1); Sodium 135 mmol/L (136-145)
[2023-07-28 20:59] LABS: Hemoglobin A1C 8.6 % (<5.7)
== END 2023-07-28 16:24 | disposition home or self-care (01) ==
LOC: NCHCN 16:23
PROVIDERS: PCP Family Medicine; Visit Provider Family Medicine
DX: E11.8 Type 2 diabetes mellitus with unspecified complications (principal)
CPT/HCPCS: 80048; 83036

== ENCOUNTER 2024-01-09 16:44 | Outpatient (REF) | payer MEDICARE, SELFPAY ==
[2024-01-09 21:19] LABS: Anion Gap 8.1 mmol/L (3-11); BUN 45 mg/dL (7-18); CO2 25.9 mmol/L (21.0-32.0); CREATININE 2.3 mg/dL (0.70-1.30); Calcium 9.7 mg/dL (8.5-10.1); Chloride 107 mmol/L (98-107); Estimated GFR 30.36 (mL/min/1.73m2); Glucose 192 mg/dL (74-106); Potassium 4.6 mmol/L (3.5-5.1); Sodium 141 mmol/L (136-145)
== END 2024-01-09 16:45 | disposition home or self-care (01) ==
LOC: NCHCN 16:44
PROVIDERS: PCP Family Medicine; Visit Provider Family Medicine
DX: I10 Essential (primary) hypertension (principal)
CPT/HCPCS: 80048

== ENCOUNTER 2024-08-20 13:34 | Outpatient (REF) | payer MEDICARE, SELFPAY ==
[2024-08-21 10:35] LABS: PSA, Screening 1.0 ng/mL (<=4.5)
== END 2024-08-20 13:35 | disposition home or self-care (01) ==
LOC: NCHCN 13:34
PROVIDERS: PCP Family Medicine; Visit Provider Family Medicine
DX: Z12.5 Encounter for screening for malignant neoplasm of prostate (principal)
CPT/HCPCS: 84153

== ENCOUNTER 2024-10-22 15:08 | Outpatient (REF) | payer MEDICARE, SELFPAY ==
[2024-10-22 14:36] LABS: HCT 42.3 % (40.0-50.0); HGB 13.5 g/dL (13.5-17.5); MCH 27.7 pg (27.0-33.0); MCHC 31.9 % (32.0-36.0); MCV 87 fL (80-95); MPV 10.3 fL (8.0-11.0); Platelet Count 224 10^3/uL (130-400); RBC 4.87 10^6/uL (4.36-5.78); RDW 14.3 % (11.8-14.1); RDW-SD 45.8 fL; WBC 6.46 10^3/uL (4.4-10.8)
[2024-10-22 15:16] LABS: Anion Gap 7.9 mmol/L (3-11); BUN 49 mg/dL (7-18); CO2 24.1 mmol/L (21.0-32.0); Calcium 9.0 mg/dL (8.5-10.1); Chloride 105 mmol/L (98-107); Cholesterol 305 mg/dL (<200); Estimated GFR 31.83 (mL/min/1.73m2); Glucose 277 mg/dL (74-106); HDL Cholesterol 56 mg/dL (>or=40); Potassium 5.4 mmol/L (3.5-5.1); Sodium 137 mmol/L (136-145); Triglyceride 512 mg/dL (<150)
[2024-10-23 12:22] LABS: LDL CHOLESTEROL 50 mg/dL (<160)
== END 2024-10-22 15:09 | disposition home or self-care (01) ==
LOC: NCHCN 15:08
PROVIDERS: PCP Family Medicine; Visit Provider Family Medicine
DX: I10 Essential (primary) hypertension (principal)
CPT/HCPCS: 80048; 80061; 83721; 85027

== ENCOUNTER 2024-12-28 12:25 | Outpatient (REF) | payer MEDICARE, SELFPAY ==
[2024-12-28 15:37] LABS: Anion Gap 9.1 mmol/L (3-11); BUN 64 mg/dL (9-23); CO2 21.9 mmol/L (20.0-31.0); Calcium 10.4 mg/dL (8.3-10.6); Chloride 105 mmol/L (98-107); Glucose 197 mg/dL (74-106); Potassium 7.2 mmol/L (3.5-5.1); Sodium 136 mmol/L (136-145)
== END 2024-12-28 12:26 | disposition home or self-care (01) ==
LOC: NCHCN 12:25
PROVIDERS: PCP Family Medicine; Visit Provider Family Medicine
DX: N18.32 Chronic kidney disease, stage 3b (principal)
CPT/HCPCS: 80048

== ENCOUNTER 2024-12-31 15:15 | Outpatient (REF) | payer MEDICARE, SELFPAY ==
[2024-12-31 21:14] LABS: Anion Gap 9.1 mmol/L (3-11); BUN 50 mg/dL (9-23); CO2 22.9 mmol/L (20.0-31.0); Calcium 9.2 mg/dL (8.3-10.6); Chloride 107 mmol/L (98-107); Glucose 208 mg/dL (74-106); Potassium 5.3 mmol/L (3.5-5.1); Sodium 139 mmol/L (136-145)
== END 2024-12-31 15:16 | disposition home or self-care (01) ==
LOC: NCHCN 15:15
PROVIDERS: PCP Family Medicine; Visit Provider Family Medicine
DX: N18.4 Chronic kidney disease, stage 4 (severe) (principal)
CPT/HCPCS: 80048

== ENCOUNTER 2025-01-18 09:46 | Outpatient (REF) | payer MEDICARE, SELFPAY ==
[2025-01-18 15:53] LABS: Anion Gap 8.5 mmol/L (3-11); BUN 43 mg/dL (9-23); CO2 25.5 mmol/L (20.0-31.0); Calcium 9.9 mg/dL (8.3-10.6); Chloride 104 mmol/L (98-107); Glucose 171 mg/dL (74-106); Potassium 4.7 mmol/L (3.5-5.1); Sodium 138 mmol/L (136-145)
== END 2025-01-18 09:47 | disposition home or self-care (01) ==
LOC: NCHCN 09:46
PROVIDERS: PCP Family Medicine; Visit Provider Family Medicine
DX: N18.32 Chronic kidney disease, stage 3b (principal)
CPT/HCPCS: 80048

== ENCOUNTER 2025-01-21 16:12 | Outpatient (REF) | payer MEDICARE, SELFPAY ==
[2025-01-21 16:11] LABS: HCT 43.0 % (40.0-50.0); HGB 13.8 g/dL (13.5-17.5); MCH 28.5 pg (27.0-33.0); MCHC 32.1 % (32.0-36.0); MCV 89 fL (80-95); MPV 10.6 fL (8.0-11.0); Platelet Count 226 10^3/uL (130-400); RBC 4.84 10^6/uL (4.36-5.78); RDW 12.7 % (11.8-14.1); RDW-SD 41.7 fL; WBC 7.47 10^3/uL (4.4-10.8)
[2025-01-21 16:27] LABS: Albumin 4.3 g/dL (3.2-5.0); Anion Gap 8.4 mmol/L (3-11); BUN 43 mg/dL (9-23); CO2 25.6 mmol/L (20.0-31.0); Calcium 9.0 mg/dL (8.3-10.6); Chloride 105 mmol/L (98-107); Glucose 263 mg/dL (74-106); Potassium 4.5 mmol/L (3.5-5.1); Sodium 139 mmol/L (136-145)
[2025-01-21 16:28] LABS: Iron 67 ug/dL (65-175); Total Iron Binding Capacity 302 ug/dL (250-425); Transferrin Sat 22 % (20-55)
[2025-01-21 16:32] LABS: Ferritin 140 ng/mL (11-307); Vitamin D 25 Total 32 ng/mL (30-100)
[2025-01-21 18:38] LABS: Prot/Crea Ur Ratio 1.83 mg/mg Cr
[2025-01-21 18:55] LABS: Microalb ug/mg Crea 1059.8 ug/mg Cr
== END 2025-01-21 16:13 | disposition home or self-care (01) ==
LOC: LBN 16:12
PROVIDERS: PCP Family Medicine; Visit Provider Internal Medicine
DX: N18.4 Chronic kidney disease, stage 4 (severe) (principal)
CPT/HCPCS: 80069; 82306; 85027; 82043; 82565; 82570; 82728; 83540; 83550; 83970; 84156